=== PATIENT | male | born 1950 | race Caucasian/White ===

== ENCOUNTER 2023-11-19 05:59 | Day surgery (SDC) | payer MEDICARE, OTHER ==
[~2023-11-19 05:59] MED LIST: Dextrose 5%-0.45% NaCl 1,000 ML IV SCH
[2023-11-19] MEDS ORDERED: Midazolam 1 MG/ML 2 ML SDV IV ONE (06:00)
[2023-11-19] MEDS ORDERED: fentaNYL 100 MCG/2 ML SDV IV ONE (06:00)
[2023-11-19] MEDS ORDERED: Midazolam 1 MG/ML 2 ML SDV ONE (06:12)
[2023-11-19] MEDS ORDERED: fentaNYL 100 MCG/2 ML SDV ONE (06:12)
[2023-11-19] MEDS: Dextrose 5%-0.45% NaCl 1,000 ML IV SCH (06:38)
[2023-11-19] MEDS: fentaNYL 100 MCG/2 ML SDV IV ONE ×2 (07:24→07:25)
[2023-11-19] MEDS: Midazolam 1 MG/ML 2 ML SDV IV ONE ×4 (07:25→07:31)
[2023-11-19 09:03] VITALS: BP 111/70; PULSE 58
== END 2023-11-19 09:09 | disposition home or self-care (01) ==
LOC: DL.ENDO 05:59
PROVIDERS: ATTEND Internal Medicine Gastroenterology
DX: Z12.11 Encounter for screening for malignant neoplasm of colon (principal); K63.5 Polyp of colon; I10 Essential (primary) hypertension; I25.10 Atherosclerotic heart disease of native coronary artery without angina pectoris; E78.5 Hyperlipidemia, unspecified; Z87.891 Personal history of nicotine dependence
CPT/HCPCS: 45385; J2250; J3010; J7799